=== PATIENT | female | born 1980 | race Hispanic/Latino ===

== ENCOUNTER 2017-08-05 07:55 | Observation (INO) | payer BC ==
[2017-08-05] MEDS ORDERED: NA CHLORIDE 0.9% 1,000 ML ONE ×2 (08:16→11:09)
[2017-08-05] MEDS ORDERED: ONDANSETRON 4 MG/2 ML VIAL ONE (08:17)
[2017-08-05] MEDS ORDERED: KETOROLAC 30 MG/ML INJ ONE ×2 (08:24→13:53)
[2017-08-05 08:48] LABS: Urine Blood NEGATIVE (NEG); Urine Glucose NEGATIVE (NEG); Urine Protein 1+ (NEG); Urine pH 7.5 (5.0-7.0)
[2017-08-05 08:52] LABS: Absolute Lymphocytes (CBC) 0.9 K/uL (0.7-4.9); Absolute Monocytes 0.2 K/uL (0.1-1.3); Absolute Neutrophil 11.3 K/uL (1.8-8.0); Basophils % 0.2 % (0-1.3); Hematocrit 37.7 % (36.0-45.0); Lymphocytes % 7.6 % (15.3-44.8); MCH 26.6 pg (27.0-35.0); MCV 80.4 fL (80-100); MPV 8.2 fL (7.6-11.3); Monocytes % 1.9 % (3.3-12.3); RBC Red Blood Cell Count 4.69 M/uL (3.86-4.86)
[2017-08-05 09:02] LABS: Bicarbonate 24 mEq/L (21-31); Glucose Level 163 mg/dL (65-120); Lipase 19 U/L (22-51); Potassium 3.7 mEq/L (3.6-5.0); Sodium Level 136 mEq/L (135-145)
[2017-08-05 09:08] LABS: ALT/SGPT 29 IU/L (10-60); AST/SGOT 22 IU/L (10-42); Albumin 4.3 g/dL (3.2-5.5); Alkaline Phosphatase 76 IU/L (42-121); Amylase Level 52 U/L (28-100); BUN Blood Urea Nitrogen 10 mg/dL (6-20); Bilirubin Direct < 0.1 mg/dL (0-0.2); Bilirubin Total 0.4 mg/dL (0.3-1.2); Protein, Total 8.2 g/dL (6.0-8.3)
[2017-08-05 09:10] LABS: Urine Bacteria NONE SEEN /HPF (<20); Urine RBC <5 /HPF (NONE SEEN)
[2017-08-05 09:11] LABS: Urine Amorphous Sediment 3+ /HPF (NONE SEEN); Urine Culture Reflex Order NOT NEEDED
[2017-08-05 10:03] LABS: Blood Morphology Comment NOT SEEN (NOT SEEN); Platelet Estimate ADEQ
--- NOTE | 2017-08-05 10:53 | ER ---
Nurse's Notes [facility] Name: Shivani Haddad Age: 37 yrs Sex: Female : 1980 Arrival Date: 08/05/2017 Time: 07:57 Bed 5 Private MD: Diagnosis: Cholelithiasis;Cholecystitis Presentation: 08/05 08:10 Method Of Arrival: Ambulatory aa5 08:10 Presenting complaint: Patient states: RUQ pain and N/V that began last night. Pt states aa5 "they told me I needed my gallbladder taken out back in November". Transition of care: patient was not received from another setting of care. Onset of symptoms was July 2017. Initial Sepsis Screen: Does the patient meet any 2 criteria? No. Patient's initial sepsis screen is negative. Does the patient have a suspected source of infection? No. Patient's initial sepsis screen is negative. Care prior to arrival: None. 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 - Social history:: Smoking status: Patient/guardian denies using tobacco. Screenin:33 Abuse screen: Denies threats or abuse. Nutritional screening: No deficits noted. tw2 Tuberculosis screening: No symptoms or risk factors identified. Fall Risk None identified. Assessment: 08:32 General: Appears uncomfortable, Behavior is calm, cooperative, appropriate for age. tw2 Pain: Complains of pain in abdomen. Neuro: Level of Consciousness is awake, alert, obeys commands, Oriented to person, place, time, situation. Cardiovascular: Denies chest pain, shortness of breath, Heart tones S1 S2 Capillary refill < 3 seconds Patient's skin is warm and dry. Respiratory: Airway is patent Respiratory effort is even, unlabored, Respiratory pattern is regular, symmetrical, Breath sounds are clear bilaterally. GI: Bowel sounds present X 4 quads. Abd is soft X 4 quads Reports nausea, vomiting. : No signs and/or symptoms were reported regarding the genitourinary system. EENT: No signs and/or symptoms were reported regarding the EENT system. Derm: No signs and/or symptoms reported regarding the dermatologic system. Musculoskeletal: Range of motion: intact in all extremities. 09:12 Reassessment: Patient appears in no apparent distress at this time. Patient and/or tw2 family updated on plan of care and expected duration. Pain level reassessed. Patient is alert, oriented x 3, equal unlabored respirations, skin warm/dry/pink. 10:27 Reassessment: Patient appears in no apparent distress at this time. Patient and/or tw2 family updated on plan of care and expected duration. Pain level reassessed. Patient is alert, oriented x 3, equal unlabored respirations, skin warm/dry/pink. 11:20 Reassessment: Patient appears in no apparent distress at this time. Patient and/or tw2 family updated on plan of care and expected duration. Pain level reassessed. Patient is alert, oriented x 3, equal unlabored respirations, skin warm/dry/pink. 12:00 Reassessment: Patient appears in no apparent distress at this time. Patient and/or hb family updated on plan of care and expected duration. Pain level reassessed. Patient is alert, oriented x 3, equal unlabored respirations, skin warm/dry/pink. 13:00 Reassessment: Patient appears in no apparent distress at this time. Patient and/or hb family updated on plan of care and expected duration. Pain level reassessed. Patient is alert, oriented x 3, equal unlabored respirations, skin warm/dry/pink. Vital Signs: 08:14 BP 139 / 86; Pulse 65; Resp 18 S; Temp 97.0(TE); Pulse Ox 100% on R/A; Weight 99.79 kg aa5 (R); Height 5 ft. 4 in. (162.56 cm) (R); Pain 10/10; 09:12 BP 129 / 82; Pulse 55; Resp 17; Pulse Ox 100% on R/A; tw2 10:27 BP 134 / 83; Pulse 64; Resp 17; Pulse Ox 100% on R/A; tw2 11:20 BP 124 / 79; Pulse 70; Resp 17; Pulse Ox 100% on R/A; tw2 12:00 BP 128 / 78; Pulse 74; Resp 16; Pulse Ox 100% on R/A; hb 13:00 BP 138 / 96; Pulse 72; Resp 15; Pulse Ox 100% on R/A; hb 08:14 Body Mass Index 37.76 (99.79 kg, 162.56 cm) aa5 ED Course: 07:57 Patient arrived in ED. as 08:02 Sugar Vang FNP-C [facility]. kb 08:02 Rodrigo Carr MD is Attending Physician. kb 08:12 Triage completed. aa5 08:12 Arm band placed on. aa5 08:13 Loreta Lockett, SERENA is Primary Nurse. tw2 08:20 Bed in low position. Side rails up X 1. Pulse ox on. NIBP on. Warm blanket given. tw2 08:25 No provider procedures requiring assistance completed. Inserted saline lock: 20 gauge tw2 in left antecubital area, using aseptic technique. ,using aseptic technique. Shaylee Jiménez Blood collected. Missed attempt(s): 22 gauge in right antecubital area. Bleeding controlled, band aid applied, catheter tip intact. 08:30 Missed attempt(s): 22 gauge in right antecubital area. Bleeding controlled, band aid tw2 applied, catheter tip intact. 09:41 Ultrasound completed. Patient tolerated well. sg3 10:51 Skip Clancy MD is Hospitalizing Provider. kb 13:16 Awaiting: tried to call report, SERENA Henriquez said SERENA Rae is the nurse and needs me to tw2 call back in 10 minutes. 13:51 Patient admitted, IV remains in place. tw2 Administered Medications: 08:25 Drug: Zofran 4 mg Route: IVP; Site: left antecubital; tw2 09:35 Follow up: Response: No adverse reaction; Nausea is decreased tw2 08:27 Drug: TORadol 30 mg Route: IVP; Site: left antecubital; tw2 11:19 Follow up: Response: No adverse reaction tw2 08:29 Drug: NS 0.9% 1000 ml Route: IV; Rate: 1000 ml; Site: left antecubital; tw2 09:45 Follow up: Response: No adverse reaction; IV Status: Completed infusion; IV Intake: tw2 1000ml 11:19 Drug: Zosyn 3.375 grams Route: IVPB; Infused Over: 60 mins; Site: left antecubital; tw2 12:25 Follow up: Response: No adverse reaction; IV Status: Completed infusion tw2 11:19 Drug: NS 0.9% 1000 ml Route: IV; Rate: 100 ml/hr; Site: left antecubital; tw2 13:16 Follow up: IV Status: Infusion continued upon admission tw2 Intake: 09:45 IV: 1000ml; Total: 1000ml. tw2 Outcome: 10:52 Decision to Hospitalize by Provider. kb 13:51 Admitted to Med/surg accompanied by nurse, room 217, Report called to SERENA Henriquez tw2 13:51 Condition: stable 13:51 Instructed on the need for admit. 14:09 Patient left the ED. tw2 Signatures: Dispatcher [employer] EDSugar Cisneros, QUARRY PLANT CRUSHER OPERATOR-C QUARRY PLANT CRUSHER OPERATOR-Jovanna Fan Audri, RN RN aa5 Yvette Swain, RN SERENA Loreta Lockett RN RN tw2 Lorraine Soni sg3 Corrections: (The following items were deleted from the chart) 08:12 08:00 Presenting complaint: Patient states: RUQ pain and N/V that began last night. Pt aa5 states "they told me I needed my gallbladder taken out back in November" aa 08:00 Transition of care: patient was not received from another setting of care. aa5 [facility] 08 08:00 Onset of symptoms was July 2017 aa5 [facility] 08: 08:00 Initial Sepsis Screen: Does the patient meet any 2 criteria? No. Patient's aa5 initial sepsis screen is negative. Does the patient have a suspected source of infection? No. Patient's initial sepsis screen is negative. aa5 08 08:00 Care prior to arrival: None. [place] [id number] 08:00 Method Of Arrival: Ambulatory [place] [id number] 08 08:00 Acuity: SLOAN 3 aa5 5 11:16 10:34 In radiology for Abdomen Limited+US.RAD.VIV. EDSC sg3
--- NOTE | 2017-08-05 10:53 | EDPHYS ---
Physician Documentation [facility] Name: Shivani Haddad Age: 37 yrs Sex: Female : 1980 Arrival Date: 08/05/2017 Time: 07:57 Bed 5 Private MD: ED Physician Rodrigo Carr HPI: 08/05 08:17 This 37 yrs old Female presents to ER via Ambulatory with complaints of kb Gallbladder. 08:17 The patient presents with abdominal pain in the right upper quadrant. Onset: The kb symptoms/episode began/occurred yesterday. The symptoms do not radiate. Associated signs and symptoms: Pertinent positives: nausea and vomiting, Pertinent negatives: anorexia, blood in stools, chest pain, constipation, diarrhea, dysuria, fever, headache, hematuria, palpitations, shortness of breath, vaginal discharge, vomiting blood. The symptoms are described as achy. Modifying factors: The symptoms are alleviated by nothing, the symptoms are aggravated by pressure. Severity of pain: At its worst the pain was moderate in the emergency department the pain is unchanged. The patient has experienced a previous episode, last year, and the symptoms today are exactly the same, told it was her gallbladder and that she needed to have it removed. The patient has not recently seen a physician. 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 - Social history:: Smoking status: Patient/guardian denies using tobacco. ROS: 08:16 Constitutional: Negative for fever, chills, and weight loss, ENT: Negative for injury, kb pain, and discharge, Neck: Negative for injury, pain, and swelling, Cardiovascular: Negative for chest pain, palpitations, and edema, Respiratory: Negative for shortness of breath, cough, wheezing, and pleuritic chest pain, Back: Negative for injury and pain, : Negative for injury, bleeding, discharge, and swelling, MS/Extremity: Negative for injury and deformity, Skin: Negative for injury, rash, and discoloration, Neuro: Negative for headache, weakness, numbness, tingling, and seizure. 08:16 Abdomen/GI: Positive for abdominal pain, nausea and vomiting, Negative for diarrhea, constipation, abdominal cramps, abdominal distension, anorexia. Exam: 08:16 Constitutional: This is a well developed, well nourished patient who is awake, alert, kb and in no acute distress. Head/Face: Normocephalic, atraumatic. ENT: Nares patent. No nasal discharge, no septal abnormalities noted. Tympanic membranes are normal and external auditory canals are clear. Oropharynx with no redness, swelling, or masses, exudates, or evidence of obstruction, uvula midline. Mucous membranes moist. Neck: Trachea midline, no thyromegaly or masses palpated, and no cervical lymphadenopathy. Supple, full range of motion without nuchal rigidity, or vertebral point tenderness. No Meningismus. Chest/axilla: Normal chest wall appearance and motion. Nontender with no deformity. No lesions are appreciated. Cardiovascular: Regular rate and rhythm with a normal S1 and S2. No gallops, murmurs, or rubs. Normal PMI, no JVD. No pulse deficits. Respiratory: Lungs have equal breath sounds bilaterally, clear to auscultation and percussion. No rales, rhonchi or wheezes noted. No increased work of breathing, no retractions or nasal flaring. Back: No spinal tenderness. No costovertebral tenderness. Full range of motion. Skin: Warm, dry with normal turgor. Normal color with no rashes, no lesions, and no evidence of cellulitis. MS/ Extremity: Pulses equal, no cyanosis. Neurovascular intact. Full, normal range of motion. Neuro: Awake and alert, GCS 15, oriented to person, place, time, and situation. Cranial nerves II-XII grossly intact. Motor strength 5/5 in all extremities. Sensory grossly intact. Cerebellar exam normal. Normal gait. 08:16 Abdomen/GI: Inspection: abdomen appears normal, Bowel sounds: normal, in all quadrants, Palpation: soft, in all quadrants, nontender, in the left upper quadrant, right lower quadrant and left lower quadrant, moderate abdominal tenderness, in the right upper quadrant. Vital Signs: 08:14 BP 139 / 86; Pulse 65; Resp 18 S; Temp 97.0(TE); Pulse Ox 100% on R/A; Weight 99.79 kg aa5 (R); Height 5 ft. 4 in. (162.56 cm) (R); Pain 10/10; 09:12 BP 129 / 82; Pulse 55; Resp 17; Pulse Ox 100% on R/A; tw2 10:27 BP 134 / 83; Pulse 64; Resp 17; Pulse Ox 100% on R/A; tw2 11:20 BP 124 / 79; Pulse 70; Resp 17; Pulse Ox 100% on R/A; tw2 12:00 BP 128 / 78; Pulse 74; Resp 16; Pulse Ox 100% on R/A; hb 13:00 BP 138 / 96; Pulse 72; Resp 15; Pulse Ox 100% on R/A; hb 08:14 Body Mass Index 37.76 (99.79 kg, 162.56 cm) aa5 MDM: 08:08 Patient medically screened. kb 08:16 Data reviewed: vital signs, nurses notes. Data interpreted: Pulse oximetry: on room air kb is 100 %. Interpretation: normal. 10:44 Counseling: I had a detailed discussion with the patient and/or guardian regarding: the kb historical points, exam findings, and any diagnostic results supporting the discharge/admit diagnosis, lab results, radiology results, the need for further work-up and treatment in the hospital. 10:44 Physician consultation: Skip Clancy MD was contacted at 10:51, regarding admission, kb to the medical/surgical unit. patient's condition. 08/05 08:08 Order name: Amylase, Serum; Complete Time: 09:15 kb 08/05 08:08 Order name: Basic Metabolic Panel; Complete Time: 09:15 kb 08/05 08:08 Order name: CBC with Diff; Complete Time: 10:04 kb 08/05 08:08 Order name: Hepatic Function; Complete Time: 09:15 kb 08/05 08:08 Order name: Lipase; Complete Time: 09:15 kb 08/05 08:08 Order name: Urine Microscopic Only; Complete Time: 09:15 kb 08/05 08:10 Order name: US Abdomen Limited; Complete Time: 12:19 kb 08/05 08:25 Order name: Urine Dipstick--Ancillary (enter results); Complete Time: 08:51 ag 08/05 08:25 Order name: Urine --Ancillary (enter results); Complete Time: 08:51 ag 08/05 10:02 Order name: Manual Differential; Complete Time: 10:04 EDMS 08/05 08:08 Order name: Urine Test (obtain specimen); Complete Time: 08:37 kb 08/05 08:08 Order name: IV Saline Lock; Complete Time: 08:32 kb 08/05 08:08 Order name: Labs collected and sent; Complete Time: 08:32 kb 08/05 08:08 Order name: Urine Dipstick-Ancillary (obtain specimen); Complete Time: 08:32 kb Administered Medications: 08:25 Drug: Zofran 4 mg Route: IVP; Site: left antecubital; tw2 09:35 Follow up: Response: No adverse reaction; Nausea is decreased tw2 08:27 Drug: TORadol 30 mg Route: IVP; Site: left antecubital; tw2 11:19 Follow up: Response: No adverse reaction tw2 08:29 Drug: NS 0.9% 1000 ml Route: IV; Rate: 1000 ml; Site: left antecubital; tw2 09:45 Follow up: Response: No adverse reaction; IV Status: Completed infusion; IV Intake: tw2 1000ml 11:19 Drug: Zosyn 3.375 grams Route: IVPB; Infused Over: 60 mins; Site: left antecubital; tw2 12:25 Follow up: Response: No adverse reaction; IV Status: Completed infusion tw2 11:19 Drug: NS 0.9% 1000 ml Route: IV; Rate: 100 ml/hr; Site: left antecubital; tw2 13:16 Follow up: IV Status: Infusion continued upon admission tw2 Disposition: 08/06 09:17 Co-signature as Attending Physician, Rodrigo Carr MD I agree with the assessment and [facility] plan of care. Disposition: 08/05/17 10:52 Hospitalization ordered by Skip Clancy for Observation. Preliminary diagnosis are Cholelithiasis, Cholecystitis. - Bed requested for Telemetry/MedSurg (observation). - Status is Observation. tw2 - Condition is Stable. - Problem is new. - Symptoms are unchanged. UTI on Admission? No Signatures: Dispatcher [employer] [facility] Sugar Vang, WIRE BASKET MAKER-C RASHMI-Rodrigo Augustin MD MD cha Calderon, Audri, RN RN aa5 Amna Breaux Tara RN RN tw2 Corrections: (The following items were deleted from the chart) 08/05 12:50 10:52 Hospitalization Ordered by Skip Clancy MD for Observation. Preliminary ag diagnosis is Cholelithiasis; Cholecystitis. Bed requested for Telemetry/MedSurg (observation). Status is Observation. Condition is Stable. Problem is new. Symptoms are unchanged. UTI on Admission? No. kb 14:09 12:50 08/05/2017 10:52 Hospitalization Ordered by Skip Clancy MD for Observation. tw2 Preliminary diagnosis is Cholelithiasis; Cholecystitis. Bed requested for Telemetry/MedSurg (observation). Status is Observation. Condition is Stable. Problem is new. Symptoms are unchanged. UTI on Admission? No. ag
[2017-08-05] MEDS ORDERED: PIPER/TAZO/NS 3.375gm 3.375 GM/100 ML BAG ONE (11:09)
--- NOTE | 2017-08-05 12:19 | RAD REPORT ---
EXAM DESCRIPTION: US - Abdomen Exam Limited - 08/05/2017 10:34 am CLINICAL HISTORY: Abdominal pain. COMPARISON: None. FINDINGS: The gallbladder contains many stones. The gallbladder wall does not appear thickened. The common bile duct is dilated measuring 9 millimeters IMPRESSION: Cholelithiasis without evidence cholecystitis Dilatation of the common bile duct probably secondary to a nonvisualized stone within the duct
[2017-08-05] MEDS ORDERED: PROPOFOL 200 MG/20 ML VIAL IV ONE (13:51)
[2017-08-05] MEDS ORDERED: GLYCOPYRROLATE 0.2 MG/ML SYR ONE (13:51)
[2017-08-05] MEDS ORDERED: MIDAZOLAM HCL 2 MG/2 ML INJ ONE (13:51)
[2017-08-05] MEDS ORDERED: FENTANYL CITR 100 MCG/2 ML ONE (13:51)
[2017-08-05] MEDS ORDERED: MORPHINE 10 MG/ML VIAL ONE (13:53)
[2017-08-05] MEDS ORDERED: ONDANSETRON HCL 40 MG/20 ML VIAL ONE (13:54)
[2017-08-05] MEDS ORDERED: NEOSTIGMINE 1 MG/ML -5 ML SYRINGE ONE (13:54)
[2017-08-05] MEDS ORDERED: ROCURONIUM 50 MG/5 ML VIAL IV ONE (13:54)
[2017-08-05] MEDS ORDERED: LIDOCAINE 2% MPF 5 ML VIAL ONE (14:02)
[2017-08-05] MEDS ORDERED: Ringers Lactate 1,000 ML IV ONE (14:18)
--- NOTE | 2017-08-05 14:19 | P.HP ---
Date of Service: 08/05/17 PC: This 37-year-old female presents emergency room with severe right upper quadrant abdominal pain for diagnosis and treatment. HPC: Patient been in home, when she noticed that she is having pain that began about 11 o'clock last night. Was very severe. Located in the right upper quadrant, radiating into her back. Associated with vomiting and nausea. Has had similar episodes in the past like this but never this bad. PMH: Negative PSHx: No prior surgery SOC: No known allergy SYS REVIEW: And is not diabetic, no hypertension, no urinary complaints. No cough or wheeze. States she is in good health. 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 The risks of this procedure have been discussed. The possibility of bleeding, infection, injury to bile ducts blood vessels and intestines has been described. The possible need for an open and/or further surgeries and procedures was discussed. She understands and wants us to proceed.
[2017-08-05] MEDS ORDERED: ONDANSETRON 4 MG/2 ML VIAL IV PRN ×2 (14:44→16:21)
[2017-08-05] MEDS ORDERED: Morphine 2 MG/2 ML SYR IV PRN ×2 (14:44→16:21)
[2017-08-05] MEDS ORDERED: ACETAMINOPHEN 500 MG TAB PO PRN (14:44)
--- NOTE | 2017-08-05 15:57 | P.OP ---
Preoperative diagnosis: Acute on chronic cholecystitis with cholelithiasis, biliary colic Postoperative diagnosis: The same Primary procedure: Laparoscopic cholecystectomy Secondary procedure: Cholangiogram Anesthesia: General Estimated blood loss: Less than 10 cc Specimen: 1 gallbladder in contents Operative Technique: The patient brought to the operating room and placed supine on the table. After the induction of adequate general endotracheal anesthesia, the area of the abdomen was prepped with a DuraPrep solution, and she was draped in usual aseptic manner. A subumbilical incision was made. This brought down through the skin and subcutaneous tissue. The tissue port was used to enter the peritoneal cavity and created pneumoperitoneum to approximately 12 mm of mercury. Under direct vision a 5 mm trocar was placed in the upper midline, and 2 fives on the right lateral side. We were now able to visualize the right upper quadrant after having place the patient in reverse Trendelenburg and rolled to the left side. The gallbladder was noted to be distended. It was necessary to aspirate is contents to place a grasper on the fundus. Another was placed down by Avni' s pouch. Applying lateral traction we were able to dissect off some dense adhesions around Avni's pouch. We then expose the cystic duct and artery. Having obtained the critical view and the cystic duct. An opening was made into the cystic duct through which we obtained a normal intraoperative cholangiogram. It was also able to pass the cholangio catheter down into the duodenum. The catheter was now removed. Clips were placed on the distal portion of the cystic duct. The cystic artery was clipped and divided as well. The gallbladder was now dissected free from the liver bed, placed into an Endo -Catch, and brought out through the umbilical trocar site. The patient was returned to the neutral position on the OR table. The umbilical trocar site was approximated using the Endo Close an absorbable suture. The irrigating fluid was aspirated from the peritoneal cavity. The anterior abdominal wall was Geovani blocked with 0.25% Marcaine. The pneumoperitoneum was collapsed, the suture tied, and destiney applied to the skin. At the end of the procedure the patient was in a stable condition when sent to the recovery room. Needle sponge instrument count were correct. Complications: None Transferred to: Recovery Room Condition: Good
--- NOTE | 2017-08-05 16:23 | RAD REPORT ---
EXAM DESCRIPTION: RADCholangiogram Oper-Xray Or08/05/2017 4:18 pm CLINICAL HISTORY: Abdominal pain FINDINGS: The examination was performed by Dr. Clancy. The cystic duct was cannulated and contrast administered. Contrast flowed into the duodenum. The biliary tree is dilated. Small filling defect within the commo n bile duct likely represents stone. Please refer to the referring surgeons report for additional fin dings
[2017-08-05] MEDS ORDERED: PIPER/TAZO/NS 3.375gm 3.375 GM/100 ML BAG IVPB SCH (17:00)
[2017-08-05] MEDS: NA CHLORIDE 0.9% 1,000 ML IV SCH ×2 (17:17→21:04)
[2017-08-05] MEDS: HYDROCODONE/APAP 7.5/325 MG TAB PO PRN (17:42)
[2017-08-06] MEDS: NA CHLORIDE 0.9% 1,000 ML IV SCH (05:46)
[2017-08-06] MEDS ORDERED: MORPHINE 4 MG/ML SYR IV PRN (08:50)
[2017-08-06] MEDS: HYDROCODONE/APAP 7.5/325 MG TAB PO PRN (12:22)
--- NOTE | 2017-08-06 15:33 | P.DS ---
Admission Date: 08/05/17 Discharge Date: 08/06/17 Disposition: ROUTINE DISCHARGE Discharge Condition: GOOD Reason for Admission: Acute postoperative abdominal pain Procedures: Laparoscopic cholecystectomy with intraoperative cholangiogram Brief History of Present Illness: This patient presented to the hospital with severe right upper quadrant abdominal pain for diagnosis and treatment. She was found have cholecystitis with cholelithiasis. She is brought to the operating room where she underwent laparoscopic cholecystectomy with an normal intraoperative cholangiogram. Postoperatively she did well she was admitted for observation pain control. These goals having been achieved, she is deemed fit for discharge. Hospital Course: The above Vital Signs/Physical Exam: Temp Pulse Resp BP Pulse Ox 97.7 F 57 16 119/72 98 08/06/17 11:52 08/06/17 11:52 08/06/17 11:52 08/06/17 11:52 08/06/17 11:52 Laboratory Data at Discharge: WBC 12.5 K/uL (4.3-10.9) H 08/05/17 08:27 Hgb 12.5 g/dL (12.0-15.0) 08/05/17 08:27 Hct 37.7 % (36.0-45.0) 08/05/17 08:27 Plt Count 278 K/uL (152-406) 08/05/17 08:27 Sodium 136 mEq/L (135-145) 08/05/17 08:27 Potassium 3.7 mEq/L (3.6-5.0) 08/05/17 08:27 BUN 10 mg/dL (6-20) 08/05/17 08:27 Creatinine 0.65 mg/dL (0.44-1.00) 08/05/17 08:27 Glucose 163 mg/dL (65-120) H 08/05/17 08:27 Total Bilirubin 0.4 mg/dL (0.3-1.2) 08/05/17 08:27 AST 22 IU/L (10-42) 08/05/17 08:27 ALT 29 IU/L (10-60) 08/05/17 08:27 Alkaline Phosphatase 76 IU/L (42-121) 08/05/17 08:27 Amylase 52 U/L (28-100) 08/05/17 08:27 Lipase 19 U/L (22-51) L 08/05/17 08:27 Home Medications: NK [No Home Meds] 08/05/17
== END 2017-08-06 16:13 | disposition home or self-care (01) ==
LOC: ER 07:55 → ERHOLD 10:53 → 2ND 13:48
PROVIDERS: ADMIT Surgery; ATTEND Surgery
PROC: BF00YZZ Plain Radiography of Bile Ducts using Other Contrast (ICD-10-PCS; 2017-08-05)
PROC: 0FT44ZZ Resection of Gallbladder, Percutaneous Endoscopic Approach (ICD-10-PCS; principal; 2017-08-05 15:00)
DX: K80.12 Calculus of gallbladder with acute and chronic cholecystitis without obstruction (principal)
CPT/HCPCS: 36415; 74300; 76705; 80048; 80076; 81003; 81015; 81025; 82150; 83690; 85025; 88304; 88305; 96361; 96365; 96375; 99285; G0378; J2250; J2405; J2543; J2710; J3010; J7030; Q9967